=== PATIENT | female | born 1965 | race Caucasian/White ===

== ENCOUNTER → 2020-06-27 10:48 | Outpatient (CLI) | payer BC, SELFPAY ==
--- NOTE | ~2020-06-27 | CT_ITS ---
EXAMINATION: CT abdomen pelvis w con DATE: 06/27/2020 11:15 INDICATION: Generalized abdominal pain. Ventral hernia. History of hysterectomy and hernia repair TECHNIQUE: Computed tomography (CT) of the abdomen and pelvis was performed with 100 cc Omnipaque 350 intravenous contrast. Automated exposure control and iterative reconstruction technique were employe d. Exam dose: 1147.26 mGy-cm total exam DLP. COMPARISON: None. FINDINGS: The lung bases are clear of infiltrate or consolidation. Heart size is within normal range. No pericardial or pleural effusion. There is diffuse hepatic steatosis. Status post cholecystectomy. No hepatic space-occupying mass lesion or intrahepatic or extrahepatic b ile duct or pancreatic duct dilatation. Normal splenic size. No pancreatic mass lesion or calcificati on. Normal morphology of the adrenal glands. No renal mass lesion or scarring is evident. No urinary tract calculus or hydroureteronephrosis. The urinary bladder is relatively evacuated, unremarkable. There is a 2 x 2.2 cm cystic lesion in the posterior lateral lower right pelvic area, possibly ovaria n cyst; status post hysterectomy. Otherwise no intraperitoneal or retroperitoneal or pelvic mass lesi on or adenopathy or ascites. Normal caliber of the abdominal aorta. Normal appendix. No bowel obstruction, bowel wall thickening, pneumatosis or intraperitoneal free air . No suspicious osteolytic or osteoblastic lesions are noted. Status post posterior surgical spinal fusion at L5-S1. There is grade 1 anterolisthesis and severe de generative disc disease at L5-S1. Status post ventral abdominal wall hernia repair; very small fat-containing umbilical hernia. IMPRESSION: Diffuse hepatic steatosis Status post cholecystectomy Status post hysterectomy 2 x 2.2 cm posterolateral right pelvic cyst, possibly ovarian Reviewed, dictated and finalized at [facility]. Reviewed, dictated and finalized at [facility]. [employer]
[2020-06-27 11:04] LABS: Estimated Glomerular Filt Rate 52
== END ==
PROVIDERS: Visit Provider Internal Medicine
DX: R10.9 Unspecified abdominal pain (principal); K43.9 Ventral hernia without obstruction or gangrene; K76.0 Fatty (change of) liver, not elsewhere classified; Z90.49 Acquired absence of other specified parts of digestive tract; Z90.710 Acquired absence of both cervix and uterus
CPT/HCPCS: 74177; Q9967

== ENCOUNTER → 2023-05-18 08:04 | Outpatient (CLI) | payer BC, SELFPAY ==
--- NOTE | ~2023-05-18 | MR_ITS ---
MRI of the left ankle Clinical history: Posterior tibial tendinitis Technique: Coronal proton-density and proton-density fat-sat images, axial proton-density and proton- density fat-sat images, and sagittal proton-density and proton-density fat-sat images were acquired. Findings: Syndesmotic ligaments are intact. There is thickening and increased signal of the anterior talofibular ligament. Posterior talofibular ligament and calcaneofibular ligament are intact. Deltoid ligament is intact. There is mild fluid distention of the tibialis posterior tendon sheath, compatible mild tenosynovitis . There is mild distal tendinosis. Flexor hallucis longus and flexor digitorum longus tendons are int act. Peroneal tendons, anterior extensor tendons, and Achilles tendon are intact. There is no osteochondral lesion of the talar dome. Bone marrow signals are intact. There is mild deg enerative change at the second tarsometatarsal joint. There is a small tibiotalar joint effusion. There is probable ganglion cyst arising from the talonavicular articulation. There is thickening and increased signal at the origin of the plantar fascia. Impression: Mild tenosynovitis of the tibialis posterior tendon sheath, with mild distal tendinosis. Thickening and increased signal of the anterior talofibular ligament, consistent with sequelae prior sprain or partial tear. Thickening and increased signal of the plantar fascia proximally without soft tissue edema, consisten t with chronic plantar fasciitis. Small tibiotalar joint effusion. Mild degenerative change at the second TMT joint. Reviewed, dictated and finalized at [facility]. [facility] Impression: Mild tenosynovitis of the tibialis posterior tendon sheath, with mild distal te ndinosis. Thickening and increased signal of the anterior talofibular ligament, consisten t with sequelae prior sprain or partial tear. Thickening and increased signal of the plantar fascia proximally without soft t issue edema, consistent with chronic plantar fasciitis. Small tibiotalar joint effusion. Mild degenerative change at the second TMT joint.
== END ==
PROVIDERS: PCP Internal Medicine; Visit Provider Orthopaedic Surgery
DX: M76.822 Posterior tibial tendinitis, left leg (principal)
CPT/HCPCS: 73721

== ENCOUNTER 2024-04-22 09:28 | Outpatient (CLI) | payer BC, SELFPAY ==
--- NOTE | ~2024-04-22 | CT_ITS ---
EXAMINATION: CT ankle LT wo con DATE: 04/22/2024 09:51 INDICATION: Tarsal coalition. TECHNIQUE: Computed tomography (CT) of the left ankle was performed without intravenous contrast. Aut omated exposure control and iterative reconstruction technique were employed. The dose-length product was 554.21 mGy-cm. COMPARISON: Left ankle radiographs 05/05/2023, MRI 05/18/2023 FINDINGS: Hallux valgus is noted. There are changes of bunionectomy. There is a staple in first metat arsal. There is moderate osteoarthritis of first metatarsophalangeal joint and mild osteoarthritis of some of the midfoot and forefoot joints and the ankle joint. There are enthesophytes at the posterio r and plantar aspects of calcaneal tuberosity. There is heterotopic ossification distal to medial mal leolus. IMPRESSION: 1. Polyarticular osteoarthritis. 2. No tarsal collision. Reviewed, dictated and finalized at [facility].
== END 2024-04-22 09:29 | disposition home or self-care (01) ==
LOC: ANHIMG 09:32
PROVIDERS: PCP Internal Medicine; Visit Provider Orthopaedic Surgery
DX: Q66.89 Other specified congenital deformities of feet (principal); M19.072 Primary osteoarthritis, left ankle and foot
CPT/HCPCS: 73700